=== PATIENT | female | born 1985 | race Caucasian/White ===

== ENCOUNTER 2017-11-01 11:24 | Emergency (ER) | payer OTHER ==
[~2017-11-01] VITALS: Ht 175.3 cm; Wt 78.5 kg
== END 2017-11-01 17:13 | disposition home or self-care (01) ==
LOC: ER 11:24
DX: R25.2 Cramp and spasm (principal)

== ENCOUNTER 2021-10-24 18:17 | Emergency (ER) | payer OTHER ==
[~2021-10-24] VITALS: Ht 175.3 cm; Wt 64.9 kg
[2021-10-24] MEDS ORDERED: VITABEX IRON C1 EACH (19:09)
== END 2021-10-24 21:39 | disposition home or self-care (01) ==
LOC: ER 18:17
DX: M51.26 Other intervertebral disc displacement, lumbar region (principal); M54.31 Sciatica, right side; Z88.6 Allergy status to analgesic agent; Z88.0 Allergy status to penicillin

== ENCOUNTER 2022-09-06 23:12 | Emergency (ER) | payer OTHER ==
[~2022-09-06] VITALS: Ht 175.3 cm; Wt 54.9 kg
[~2022-09-06 23:12] MED LIST: VITABEX IRON C1 EACH
[2022-09-07] MEDS ORDERED: ORASEP SPRAY30 ML MM (02:47)
[2022-09-07] MEDS ORDERED: DOLOGESIC-DF 51 EACH PO (02:47)
[2022-09-07] MEDS ORDERED: ZYNCOF 20-400120 ML PO (02:47)
== END 2022-09-07 02:54 | disposition home or self-care (01) ==
LOC: ER 23:12
DX: U07.1 COVID-19 (principal); J10.1 Influenza due to other identified influenza virus with other respiratory manifestations; Z88.6 Allergy status to analgesic agent; Z88.0 Allergy status to penicillin